=== PATIENT | male | born 1965 | race Caucasian/White ===

== ENCOUNTER 2021-12-29 10:27 | Emergency (ER) | payer OTHER ==
--- OUTSIDE RECORDS SUMMARY | 2021-12-29 10:31 | XMS REPORT | Continuity of Care Document ---
:1965 Author Organization [facility] t Address [address] [place] [address] Care Team Providers Name Role Phone Owen Yuan MD Primary Care Physician Israel Hurtado MD Attending Clinician EARNESTINE HERNANDEZ Attending Clinician Unavailable MITCHELL VARGAS Attending Clinician Unavailable MEIR PUGH Attending Clinician Unavailable JACOBO PIMENTEL Attending Clinician Unavailable MEIR PUGH Admitting Clinician Unavailable JACOBO PIMENTEL Admitting Clinician Unavailable Payers Payer Name Policy Type Policy Number Effective Date Expiration Date S ource Problems Condition Condition Condition Status Onset Resolution Last Treating Co mments Source Name Details Category Date Date Treatment Clinician Date Hypertensi Hypertensi Disease Active 2020-0 M ethodi on on 09-14 00:00: Hospita 00 l Controlled Controlled Disease Active 2020-0 M ethodi type 2 type 2 09-14 diabetes diabetes 00:00: Hospit a mellitus mellitus 00 l without without complicati complicati on, on, without without long-term long-term current current use of use of insulin insulin Abnormal Abnormal Disease Active Metho di CT scan CT scan 09-14 00:00: Hospita 00 l Abnormal Abnormal Disease Active Metho di stress stress 09-14 electrocar electrocar 00:00: Ho spita diogram diogram 00 l test using test using treadmill treadmill Allergies, Adverse Reactions, Alerts Allergy Allergy Status Severity Reaction(s) Onset Inactive Treating Comm ents Source Name Type Date Date Clinician Ciprofraine Propensi Active Unknown 2016-04 Metho di xacin ty to Reaction 05-02 adverse 00:00: Hospita reaction 00 l s to drug Sulfa Propensi Active 2016-04 Methodi (Sulfona ty to 04-27 st mide adverse 00:00: Hospita Antibiot reaction 00 l ics) s to drug Family History Family Member Diagnosis Comments Start Date Stop Date Source Maternal uncle Diabetes Natural mother Hyperlipidemia Method [facility] Natural mother Stroke Paternal grandfather Heart disease [facility] Natural sister No Known Problems Met [facility] Natural brother No Known Problems [facility] Natural father Prostate cancer [facility] Maternal grandfather Cancer [facility] Maternal grandfather Diabetes [facility] Social History Social Habit Start Date Stop Date Quantity Comments Source Alcohol intake 2020-07-17 2020-07-17 Current drinker of [facility] 00:00:00 00:00:00 [facility]finding[facility] Alcohol Comment 2019-09-15 2019-09-15 Occassional one [facility] 00:00:00 00:00:00 beer a week "maybe" [facility] Tobacco use and 2017-02-25 2017-02-25 Smokeless tobacco [facility] exposure 00:00:00 00:00:00 non-user Hospital Sex Assigned At [birth year] M [employer]ian[employer] 00:00:00 00:00:00 Hospital Smoking Status Start Date Stop Date Source Never smoked tobacco [facility] ospital Medications Ordered Filled Start Stop Current Ordering Indication Dosage Frequency Signature Comments Components Source Medication Medication Date Date Medication? Clinician (SIG) Name Name rosuvastati Yes TAKE 1 Meth valeria n (CRESTOR) 7-[address] 20 mg 00:00: MOUTH Hospita tablet 00 EVERY DAY l metFORMIN 2020-04 Yes TAKE 1 Method i XR 2-[address] (GLUCOPHAGE 00:00: MOUTH Hospi ta -XR) 500 mg 00 THREE l 24 hr TIMES A tablet DAY rosuvastati 2020-04- No TAKE 1 Met hodi n (CRESTOR) 2-27 07-[address] 20 mg 00:00: 00:00 MOUTH Hospita tablet 00 :00 EVERY DAY l metFORMIN 2020- No 500mg [id number] Take 1 Methodi XR 6-25 12-[id number] (GLUCOPHAGE 00:00: 00:00 3D (500 mg Ho spita -XR) 500 mg 00 :00 total) by l 24 hr mouth 3 tablet (three) times a day. rosuvastati No 20mg QD Take 1 Met hodi n (CRESTOR) 08-06 tablet (20 s t 20 mg 00:00: 00:00 mg total) Hospit a tablet 00 :00 by mouth l daily. metoprolol Yes 50mg QD Take 50 mg M ethodi tartrate 4-[address] (LOPRESSOR) 15:45: daily. Hosp zeyad 50 mg 07 l tablet esomeprazol Yes 40mg QD Take 40 mg Methodi e (NexIUM) 4-[address] 40 MG 15:45: daily Hospita capsule 07 before l breakfast. Procedures This patient has no known procedures. Plan of Care Planned Activity Planned Date Details Comments Source Future Scheduled 2021-12-04 HEPATITIS B VACCINES [facility] Test 02:46:12 (1 of 3 - 3-dose series) [code = HEPATITIS B VACCINES (1 of 3 - 3-dose series)] Future Scheduled 2021-12-04 COVID-19 VACCINE (#1) [facility] Test 02:46:12 [code = COVID-19 VACCINE (#1)] Future Scheduled 2021-12-04 Pneumococcal Vaccine: [facility] Test 02:46:12 Pediatrics (0 to 5 Years) and At-Risk Patients (6 to 64 Years) (1 - PCV) [code = Pneumococcal Vaccine: Pediatrics (0 to 5 Years) and At-Risk Patients (6 to 64 Years) (1 - PCV)] Future Scheduled 2021-12-04 DIABETES: RETINAL EYE [facility] Test 02:46:12 EXAM [code = DIABETES: RETINAL EYE EXAM] Future Scheduled 2021-12-04 Hepatitis C screening [facility] Test 02:46:12 (procedure) [code = [id number]] Future Scheduled 2021-12-04 COLONOSCOPY SCREENING [facility] Test 02:46:12 [code = COLONOSCOPY SCREENING] Future Scheduled 2021-12-04 SHINGLES VACCINES (1 Met [facility] Test 02:46:12 of 2) [code = SHINGLES VACCINES (1 of 2)] Future Scheduled 2021-12-04 DIABETIC FOOT EXAM [facility] Test 02:46:12 [code = DIABETIC FOOT EXAM] Future Scheduled 2021-12-04 URINE MICROALBUMIN [facility] Test 02:46:12 [code = URINE MICROALBUMIN] Future Scheduled 2021-12-04 INFLUENZA VACCINE [facility] Test 02:46:12 [code = INFLUENZA VACCINE] Encounters Start End Encounter Admission Attending Care Care Encounter Source Date/Time Date/Time Type Type Clinicians Facility Department ID 2021-10-18 2021-10-18 Refill Giancarlo [id number] [facility] 00:00:00 00:00:00 , [place] [id number] [id number] Hospit a .[id number] l .8 2021-03-31 2021-03-31 Refill Giancarlo [id number] [facility] 00:00:00 00:00:00 , [place] [id number] [id number] Hospit a .[id number] l .8 2020-07-17 2020-07-17 Outpatient GIANCARLO [facility] [id number] [place] 00:00:00 00:00:00 , [place] 426 [facility]o di 2019-09-15 2019-09-15 Outpatient ADROGUE, [facility] [id number] [place] 00:00:00 00:00:00 EARNESTINE 787 Method i 2019-09-15 2019-09-15 Outpatient [facility] [id number] [place] 00:00:00 00:00:00 788 Method i 2019-09-15 2019-09-15 Outpatient [facility] [id number] [place] 00:00:00 00:00:00 789 Method i 2019-08-29 2019-08-29 Emergency VARGAS, [facility] [id number] [place] 00:00:00 00:00:00 MITCHELL Lanier Method i 2018-12-31 2018-12-31 Outpatient Swathi PUGH, [facility] [id number] [place] 04:52:00 08:30:00 [facility] 2016-01-25 2016-01-25 Emergency PIMENTEL, [facility] [id number] 68 [place] 00:00:00 00:00:00 JACOBO 643 Mabel whipple Results This patient has no known results.
[2021-12-29 10:42] LABS: Hematocrit 50.2 % (39.6-49.0); Lymphocytes % 31.3 % (15.3-44.8); MCV 82.1 fL (80-100); RBC Red Blood Cell Count 6.12 M/uL (4.33-5.43)
[2021-12-29] MEDS ORDERED: MORPHINE 4 MG/ML SYR ONE ×2 (10:43→12:33)
[2021-12-29] MEDS ORDERED: ONDANSETRON 4 MG/2 ML VIAL ONE (10:44)
[2021-12-29] MEDS ORDERED: NA CHLORIDE 0.9% 1,000 ML ONE (10:50)
[2021-12-29] MEDS ORDERED: CROTALIDAE ANTIVENIM 1 GM VIAL IV ONE (10:52)
[2021-12-29 10:55] LABS: Potassium 3.9 mmol/L (3.5-5.1)
[2021-12-29] MEDS ORDERED: NA CHLORIDE 0.9% 250 ML ONE (10:55)
[2021-12-29 11:06] LABS: SARS-CoV-2 Antigen Rapid Res Negative (Negative)
--- NOTE | 2021-12-29 11:19 | EDPHYS ---
Physician Documentation [facility] Name: David Nguyen Age: 56 yrs Sex: Male : 1965 Arrival Date: 12/29/2021 Time: 10:29 Bed 6 Private MD: ED Physician Giuliano Melissa HPI: 12/29 10:31 This 56 yrs old Male presents to ER via Unassigned with complaints of snake bite. rn 10:31 The patient was bitten on the right hand. Onset: The symptoms/episode began/occurred rn just prior to arrival. Animal information: The snake had the markings of a copperhead snake. Secondary to the bite the patient reports pain, swelling. Associated signs and symptoms: Pertinent positives: swelling at site, tenderness, Pertinent negatives: fever. Severity of symptoms: At their worst the symptoms were moderate, in the emergency department the symptoms are unchanged. The patient has not experienced similar symptoms in the past. The patient has not recently seen a physician. Pt reports snake bite, confirmed copperhead, killed it, bite to right 2nd digit of hand, already spreading to hand and wrist, + nausea and pain. . Historical: - Allergies: 10:33 Sulfa (Sulfonamide Antibiotics); tw2 - Home Meds: 10:33 Metformin Oral [Active]; Jardiance oral [Active]; tw2 - PMHx: 10:33 Diabetes mellitus; tw2 - Immunization history:: Last tetanus immunization: < 5 years ago. - Social history:: Smoking status: . - Family history:: not pertinent. - Hospitalizations: : No recent hospitalization is reported. ROS: 10:31 Constitutional: Negative for fever, chills, and weight loss, Eyes: Negative for injury, rn pain, redness, and discharge, Neck: Negative for injury, pain, and swelling, Cardiovascular: Negative for chest pain, palpitations, and edema, Respiratory: Negative for shortness of breath, cough, wheezing, and pleuritic chest pain, Abdomen/GI: Negative for abdominal pain, vomiting, diarrhea, and constipation, MS/Extremity: + snake bite to right 2nd digit of right hand Skin: Negative for injury, rash, and discoloration, Neuro: Negative for headache, weakness, numbness, tingling, and seizure. 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 Head/Face: Normocephalic, atraumatic. Cardiovascular: Tachycardic, regular Respiratory: No increased work of breathing, no retractions or nasal flaring. Skin: + bite/puncture wounds to right hand 2nd digit on dorsum of digit with moderate swelling and ecchymosis that extends to dorsum of right hand and wrist. MS/ Extremity: Pulses equal, no cyanosis. Neurovascular intact. Full, normal range of motion. Neuro: Awake and alert, GCS 15, oriented to person, place, time, and situation. Vital Signs: 10:29 BP 168 / 107; Pulse 99; Resp 18; Temp 97.9(TE); Pulse Ox 100% on R/A; Weight 71.21 kg tw2 (R); Pain 6/10; 11:06 BP 140 / 104; Pulse 91; Resp 20; Pulse Ox 98% on R/A; db 11:46 BP 142 / 100; Pulse 80; Pulse Ox 99% ; db MDM: 10:29 Patient medically screened. rn 11:17 Differential diagnosis: snake bite. Data reviewed: vital signs, nurses notes, lab test rn result(s), and as a result, I will admit patient. Counseling: I had a detailed discussion with the patient and/or guardian regarding: the historical points, exam findings, and any diagnostic results supporting the discharge/admit diagnosis, lab results, the need for further work-up and treatment in the hospital, the need to transfer to another facility, for higher level of care, [facility] does not immediately have the required specialist. Response to treatment: the patient's symptoms have mildly improved after treatment, and as a result, I will admit patient. Admission orders: after a detailed discussion of the patient's condition and case, the admit orders are written by me. ED course: Pt feels better, gisela given, consulted with Dr. 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 . 11:28 ED course: Pt reports tetanus within the last year.. rn 12/29 10:30 Order name: CBC with Diff; Complete Time: 11: rn 12/29 10:30 Order name: Basic Metabolic Panel; Complete Time: :13 rn 12/29 10:30 Order name: Protime (+inr); Complete Time: 11:13 rn 12/29 10:30 Order name: Ptt, Activated; Complete Time: 11: rn 12/29 10:30 Order name: Fibrinogen; Complete Time: 11: rn 12/29 10:30 Order name: D-Dimer; Complete Time: 11:13 rn 12/29 10:30 Order name: IV Start; Complete Time: 10:30 rn 12/29 10:36 Order name: SARS RAPID; Complete Time: 11: rn 12/29 10:30 Order name: Cardiac monitoring; Complete Time: 11:32 rn Administered Medications: 10:46 Drug: morphine 4 mg Route: IVP; Infused Over: 4 mins; Site: left antecubital; kr3 11:32 Follow up: Response: No adverse reaction db 12:27 Follow up: Response: No adverse reaction kr3 12:27 Follow up: Response: RASS: Alert and Calm (0) kr3 10:46 Drug: Zofran (Ondansetron) 4 mg Route: IVP; Site: left antecubital; kr3 11:32 Follow up: Response: No adverse reaction db 10:46 Drug: NS 0.9% 1000 ml Route: IV; Rate: 1000 ml; Site: left antecubital; kr3 11:11 Drug: CroFab 6 vials Route: IV; Rate: calculated rate; Site: left antecubital; kr3 12:27 Follow up: Response: No adverse reaction; IV Status: Completed infusion; IV Intake: kr3 250ml 12:27 Drug: Ancef (cefazolin) 2 grams Route: IVPB; Infused Over: 30 mins; Site: left kr3 antecubital; 12:27 Drug: morphine 4 mg Route: IVP; Infused Over: 4 mins; Site: left antecubital; kr3 Disposition Summary: 12/29/21 11:19 Transfer Ordered Transfer Location: [facility] rn Reason: Higher level of care rn Condition: Stable rn Problem: new rn Symptoms: have improved rn Accepting Physician: (12/29/21 12:33) kr3 Diagnosis - Toxic effect of snake venom rn Forms: - Medication Reconciliation Form rn - SBAR form rn Signatures: Dispatcher [employer] EDGiuliano Aquino MD MD rn Wise, Tara, RN RN tw2 Amanda Currie RN RN kr3 Soni Negrete RN db Corrections: (The following items were deleted from the chart) 12:33 11:19 Dr. garcia kr3
--- NOTE | 2021-12-29 11:19 | ER ---
Nurse's Notes [facility] Name: David Nguyen Age: 56 yrs Sex: Male : 1965 Arrival Date: 12/29/2021 Time: 10:29 Bed 6 Private MD: Diagnosis: Toxic effect of snake venom Presentation: 12/29 10:29 Chief complaint: Patient states: i was bit by a copperhead approx 30 minutes ago. RIGHT tw2 hand first finger. it was a small one. Coronavirus screen: At this time, the client does not indicate any symptoms associated with coronavirus-19. Ebola Screen: Patient denies travel to an Ebola-affected area in the 21 days before illness onset. Initial Sepsis Screen: Does the patient meet any 2 criteria? HR > 90 bpm. No. Patient's initial sepsis screen is negative. Does the patient have a suspected source of infection? No. Patient's initial sepsis screen is negative. Risk Assessment: Do you want to hurt yourself or someone else? Patient reports no desire to harm self or others. Note provider in exam room at this time. Onset of symptoms was December 29, 2021. 10:29 Method Of Arrival: Ambulatory tw2 10:29 Acuity: DANTE 2 tw2 Triage Assessment: 10:33 Bite description: bite sustained to right hand by a snake, animal information: tw2 vaccination(s) is not applicable was sustained 30-60 minutes ago. General: Appears in no apparent distress. slender, well groomed, Behavior is calm, cooperative, appropriate for age. Pain: Complains of pain in right hand. Historical: - Allergies: 10:33 Sulfa (Sulfonamide Antibiotics); tw2 - Home Meds: 10:33 Metformin Oral [Active]; Jardiance oral [Active]; tw2 - PMHx: 10:33 Diabetes mellitus; tw2 - Immunization history:: Last tetanus immunization: < 5 years ago. - Social history:: Smoking status: . - Family history:: not pertinent. - Hospitalizations: : No recent hospitalization is reported. Screenin:35 Abuse screen: Denies threats or abuse. Nutritional screening: No deficits noted. tw2 Tuberculosis screening: No symptoms or risk factors identified. Fall Risk None identified. Assessment: 10:35 Reassessment: Contacted Poison Control, spoke with Rola at [facility], Case # ss [id number]. Recommendation to draw labs including, CBC with diff, BMP, PT, INR, PTT and administer IV fluids with maintenance fluids to follow. OK to give Crofab now as Dr. Melissa recommends due to patient symptoms. Draw repeat labs 2 hours after administration of CROFAB is complete. Pt may have 2 additional vials Crofab x 3 if needed. General:. 11:07 Reassessment: No changes from previously documented assessment. Patient and/or family db updated on plan of care and expected duration. Pain level reassessed. Patient is alert, oriented x 3, equal unlabored respirations, skin warm/dry/pink. 11:48 Reassessment: No changes from previously documented assessment. Patient and/or family db updated on plan of care and expected duration. Pain level reassessed. Patient is alert, oriented x 3, equal unlabored respirations, skin warm/dry/pink. Vital Signs: 10:29 BP 168 / 107; Pulse 99; Resp 18; Temp 97.9(TE); Pulse Ox 100% on R/A; Weight 71.21 kg tw2 (R); Pain 6/10; 11:06 BP 140 / 104; Pulse 91; Resp 20; Pulse Ox 98% on R/A; db 11:46 BP 142 / 100; Pulse 80; Pulse Ox 99% ; db ED Course: 10:29 Patient arrived in ED. eb 10:29 Giuliano Melissa MD is Attending Physician. rn 10:29 Bed in low position. Call light in reach. Pulse ox on. NIBP on. right arm elevated to tw2 level of heart at this time by PADILLA Downing. 10:30 Inserted saline lock: 18 gauge in left antecubital area, using aseptic technique. Blood kr3 collected. 10:33 Triage completed. tw2 10:34 Arm band placed on. tw2 10:46 Amanda Currie, PADILLA is Primary Nurse. kr3 11:17 initiated a transfer with Farida from the [facility]. eb 11:26 administrative approval given by Farida Thapa/ patient has been accepted to [facility] ER/ Dr. Swathi Wall has accepted the patient in transfer/ report to be called to [phone]. Administered Medications: 10:46 Drug: morphine 4 mg Route: IVP; Infused Over: 4 mins; Site: left antecubital; kr3 11:32 Follow up: Response: No adverse reaction db 12:27 Follow up: Response: No adverse reaction kr3 12:27 Follow up: Response: RASS: Alert and Calm (0) kr3 10:46 Drug: Zofran (Ondansetron) 4 mg Route: IVP; Site: left antecubital; kr3 11:32 Follow up: Response: No adverse reaction db 10:46 Drug: NS 0.9% 1000 ml Route: IV; Rate: 1000 ml; Site: left antecubital; kr3 11:11 Drug: CroFab 6 vials Route: IV; Rate: calculated rate; Site: left antecubital; kr3 12:27 Follow up: Response: No adverse reaction; IV Status: Completed infusion; IV Intake: kr3 250ml 12:27 Drug: Ancef (cefazolin) 2 grams Route: IVPB; Infused Over: 30 mins; Site: left kr3 antecubital; 12:27 Drug: morphine 4 mg Route: IVP; Infused Over: 4 mins; Site: left antecubital; kr3 Intake: 12:27 IV: 250ml; Total: 250ml. kr3 Outcome: 11:19 ER care complete, transfer ordered by . rn 12:33 Patient left the ED. kr3 Signatures: Giuliano Melissa MD MD rn Smirch, Shelby, RN RN ss Estrella Andrea RN RN tw2 Camryn Mason Kelley, RN RN kr3 Soni Negrete RN RN db Corrections: (The following items were deleted from the chart) 11:06 10:28 Inserted saline lock: 18 gauge in left antecubital area, using aseptic technique. kr3 Blood collected. kr3
[2021-12-29] MEDS ORDERED: CEFAZOLIN SODIUM 1 GM/VIAL ONE (11:44)
[2021-12-29] MEDS ORDERED: NA CHLORIDE 0.9% 100 ML ONE (11:44)
[2021-12-30 22:36] VITALS: BP 142/100; O2SAT 99
== END 2021-12-29 12:33 | disposition short-term general hospital (02) ==
LOC: ER 10:27
DX: T63.091A Toxic effect of venom of other snake, accidental (unintentional), initial encounter (principal); E11.9 Type 2 diabetes mellitus without complications; Z88.2 Allergy status to sulfonamides; Z20.822 Contact with and (suspected) exposure to COVID-19
CPT/HCPCS: 96365; 85025; 80048; 36415; 85384; 85610; 85379; 85730; 96375; 99284; 87811; J0840; J7050; J7030; J2405; J0690